=== PATIENT | male | born 1985 | race African-American/Black ===

== ENCOUNTER 2020-01-03 14:51 | Emergency (ER) | payer OTHER, SELFPAY ==
[~2020-01-03] VITALS: Ht 175.3 cm; Wt 163.8 kg
[2020-01-03] MEDS ORDERED: ceFAZolin SOD 1 GM in D5W MINI-BAG PLUS 50 ML IV ONE (15:00)
[2020-01-03] MEDS ORDERED: NS 1,000 ML IV ONE ×2 (15:00→17:45)
[2020-01-03] MEDS: fentaNYL 100 MCG/2 ML INJECTION (J3010) IV PRN ×3 (15:32→18:13)
[2020-01-03 15:47] LABS: BASO % 0.5 % (0.0-1.0); EOS % 0.7 % (0.0-3.0); HEMOGLOBIN 13.6 g/dl (13.5-17.5); LYMPH # 1.6 10^3/uL (1.5-5.0); LYMPH % 27.5 % (24.0-44.0); MEAN CORPUSCULAR HEMOGLOBIN 28.8 pg (27.0-33.0); MEAN CORPUSCULAR HGB CONC 32.4 g/dl (32.0-36.5); MONO # 0.5 10^3/uL (0.0-0.8); MONO % 7.6 % (0.0-5.0); NEUTROPHILS # 3.8 10^3/uL (1.5-8.5); NEUTROPHILS % 63.2 % (36.0-66.0); PLATELET COUNT, AUTOMATED 235 10^3/uL (150-450); RED BLOOD COUNT 4.72 10^6/uL (4.30-6.10)
[2020-01-03] MEDS ORDERED: fentaNYL 100 MCG/2 ML INJECTION (J3010) IV ONE ×3 (16:00→16:45)
[2020-01-03] MEDS ORDERED: ISOVUE-370 76% 100ML VIAL As Ordered ONE (16:11)
--- NOTE | 2020-01-03 16:16 | REPVR ---
PROCEDURE INFORMATION: Exam: XR Right Tibia and Fibula Exam date and time: 01/03/2020 3:51 PM Age: 34 years old Clinical indication: Injury or trauma; Fall; Fracture, traumatic; Open fracture, severity classification not provided; Fibula and tibia; Right TECHNIQUE: Imaging protocol: XR Right tibia and fibula. Views: 2 views. COMPARISON: No relevant prior studies available. FINDINGS: Bones/joints: Limited, including only the proximal to mid tibia and fibula. There is no fracture. Soft tissues: There is gas within the soft tissue in the mid lower leg at the inferior edge of this study. IMPRESSION: No fracture of the proximal to mid tibia or fibula. See ankle x-ray report for distal tibia and fibula. Electronically signed by: Patel Up On 01/03/2020 16:15:44 PM
--- NOTE | 2020-01-03 16:16 | REPVR ---
PROCEDURE INFORMATION: Exam: XR Chest, 1 View Exam date and time: 01/03/2020 3:51 PM Age: 34 years old Clinical indication: Injury or trauma; Fall; Sprain or strain TECHNIQUE: Imaging protocol: XR of the chest Views: 1 view. COMPARISON: No relevant prior studies available. FINDINGS: Lungs: Unremarkable. No consolidation. Pleural space: Unremarkable. No pleural effusion. No pneumothorax. Heart/Mediastinum: Unremarkable. No cardiomegaly. Bones/joints: Unremarkable. IMPRESSION: No acute findings. Electronically signed by: Patel Up On 01/03/2020 16:16:11 PM
--- NOTE | 2020-01-03 16:18 | REPVR ---
PROCEDURE INFORMATION: Exam: XR Right Ankle Exam date and time: 01/03/2020 3:51 PM Age: 34 years old Clinical indication: Injury or trauma; Fall; Fracture, traumatic; Open fracture, severity classification not provided; Fibula and tibia; Right TECHNIQUE: Imaging protocol: XR Right ankle. Views: 1 or 2 views. COMPARISON: No relevant prior studies available. FINDINGS: Bones/joints: There are transverse fractures of the distal tibia and fibula with comminution. There is 3 cm lateral displacement and 2 cm of anterior displacement at the fracture sites. Small foci of gas in the soft tissue are consistent with an open fracture. The ankle joint is intact. The fractures are approximately 10 cm proximal to the joint. Soft tissues: Normal. IMPRESSION: Comminuted and markedly displaced transverse fractures of the distal tibia and fibula. Electronically signed by: Patel Up On 01/03/2020 16:17:52 PM
--- NOTE | 2020-01-03 17:18 | REPVR ---
PROCEDURE INFORMATION: Exam: CT Cervical Spine Without Contrast Exam date and time: 01/03/2020 3:03 PM Age: 34 years old Clinical indication: Injury or trauma; Fall; Blunt trauma; Additional info: Fall from 2nd story TECHNIQUE: Imaging protocol: Computed tomography images of the cervical spine without contrast. Radiation optimization: All CT scans at this facility use at least one of these dose optimization techniques: automated exposure control; mA and/or kV adjustment per patient size (includes targeted exams where dose is matched to clinical indication); or iterative reconstruction. COMPARISON: No relevant prior studies available. FINDINGS: Vertebrae: There is no evidence of fracture. Vertebral alignment is normal. Discs/Spinal canal/Neural foramina: There is no central or foraminal stenosis. There is no significant disc disease. Soft tissues: Unremarkable. Lungs: Lung apices are normal. IMPRESSION: No fracture of the cervical spine. Electronically signed by: Patel Up On 01/03/2020 17:17:42 PM
--- NOTE | 2020-01-03 17:20 | REPVR ---
PROCEDURE INFORMATION: Exam: CT Head Without Contrast Exam date and time: 01/03/2020 3:03 PM Age: 34 years old Clinical indication: Injury or trauma; Fall; Blunt trauma (contusions or hematomas); Additional info: Fall from 2nd story TECHNIQUE: Imaging protocol: Computed tomography of the head without contrast. Radiation optimization: All CT scans at this facility use at least one of these dose optimization techniques: automated exposure control; mA and/or kV adjustment per patient size (includes targeted exams where dose is matched to clinical indication); or iterative reconstruction. COMPARISON: No relevant prior studies available. FINDINGS: Brain: There is no evidence of infarct, zapata-white matter differentiation is preserved. There is no hemorrhage or extra-axial collection. There is no mass. Cerebral ventricles: There is no hydrocephalus. Bones/joints: Unremarkable. No acute fracture. Paranasal sinuses: Visualized sinuses are unremarkable. No fluid levels. Mastoid air cells: Visualized mastoid air cells are well aerated. Soft tissues: Unremarkable. IMPRESSION: No intracranial injury or lesion. Electronically signed by: Patel Up On 01/03/2020 17:19:49 PM
--- NOTE | 2020-01-03 17:24 | REPVR ---
PROCEDURE INFORMATION: Exam: CT Chest Without Contrast Exam date and time: 01/03/2020 4:38 PM Age: 34 years old Clinical indication: Injury or trauma; Fall; Blunt trauma (contusions or hematomas); Additional info: Fall from 2nd story TECHNIQUE: Imaging protocol: Computed tomography of the chest without contrast. Radiation optimization: All CT scans at this facility use at least one of these dose optimization techniques: automated exposure control; mA and/or kV adjustment per patient size (includes targeted exams where dose is matched to clinical indication); or iterative reconstruction. COMPARISON: CR PORTABLE CHEST X-RAY 01/03/2020 3:30 PM FINDINGS: Lungs: There is no lung consolidation or contusion. Pleural space: There is no pleural effusion or hemothorax. There is no pneumothorax. Heart: Unremarkable. No cardiomegaly. No pericardial effusion. Mediastinal space: There is no mediastinal hematoma. There is no pneumomediastinum. Aorta: Unremarkable. No aortic aneurysm. Lymph nodes: Unremarkable. No enlarged lymph nodes. Bones/joints: Unremarkable. No acute fracture. Soft tissues: Unremarkable. IMPRESSION: No thoracic injury. Electronically signed by: Patle Up On 01/03/2020 17:24:14 PM
--- NOTE | 2020-01-03 17:30 | REPVR ---
PROCEDURE INFORMATION: Exam: CT Abdomen And Pelvis Without Contrast Exam date and time: 01/03/2020 4:38 PM Age: 34 years old Clinical indication: Injury or trauma; Fall; Blunt; Generalized; Additional info: Fall from 2nd story TECHNIQUE: Imaging protocol: Computed tomography of the abdomen and pelvis without contrast. Radiation optimization: All CT scans at this facility use at least one of these dose optimization techniques: automated exposure control; mA and/or kV adjustment per patient size (includes targeted exams where dose is matched to clinical indication); or iterative reconstruction. COMPARISON: No relevant prior studies available. FINDINGS: Liver: The liver is normal. Gallbladder and bile ducts: The gallbladder is normal.No calcified calculi. Normal bile ducts. Pancreas: The pancreas is normal. Spleen: The spleen is normal. Adrenals: The adrenals are normal. Kidneys and ureters: The kidneys are normal.No hydronephrosis. Stomach and bowel: Unremarkable. No obstruction. No mucosal thickening. Appendix: The appendix is well visualized and is normal. Intraperitoneal space: There is no free fluid or fluid collection. There is no free air. There is no evidence of hemoperitoneum. Retroperitoneal space: There is no evidence of retroperitoneal hemorrhage. Vasculature: Unremarkable. No abdominal aortic aneurysm. Lymph nodes: Unremarkable. No enlarged lymph nodes. Urinary bladder: The bladder is normal with no evidence of calculi. Reproductive: Unremarkable as visualized. Bones/joints: Unremarkable. No acute fracture. Soft tissues: Unremarkable. IMPRESSION: No abdominal or pelvic injury. Electronically signed by: Patel Up On 01/03/2020 17:30:10 PM
[2020-01-03 17:46] LABS: HEMATOCRIT 46.3 % (42.0-52.0); MEAN CORPUSCULAR HGB CONC 32.4 g/dl (32.0-36.5); MEAN CORPUSCULAR VOLUME 89.6 fl (80.0-96.0); PLATELET COUNT, AUTOMATED 249 10^3/uL (150-450); RED BLOOD COUNT 5.17 10^6/uL (4.30-6.10); WHITE BLOOD COUNT 8.9 10^3/uL (4.0-10.0)
[2020-01-03 17:59] LABS: INR 0.91; PROTHROMBIN TIME 12.5 SECONDS (12.5-14.3)
[2020-01-03 18:10] LABS: ALBUMIN 4.1 GM/DL (3.2-5.2); ALT/SGPT 56 U/L (12-78); AMYLASE 89 U/L (25-115); BILIRUBIN,DIRECT < 0.1 MG/DL (0.0-0.2); BILIRUBIN,TOTAL 0.4 MG/DL (0.2-1.0); CK-MB VALUE MASS 3.2 NG/ML (<3.6); CPK CREATINE PHOSPHOKINASE 551 U/L (39-308); ETHYL ALCOHOL (ETHANOL) < 0.003 % (0.000-0.010); LIPASE 293 U/L (73-393); MB/CK RELATIVE INDEX 0.58 (< OR =4); TOTAL PROTEIN 7.9 GM/DL (6.4-8.2); TROPONIN I < 0.02 NG/ML (< 0.10)
[2020-01-03 19:25] VITALS: BP 146/98
== END 2020-01-03 19:18 | disposition short-term general hospital (02) ==
LOC: EDBD 14:51 → M ED 14:51
DX: S82.221B Displaced transverse fracture of shaft of right tibia, initial encounter for open fracture type I or II (principal); S82.421B Displaced transverse fracture of shaft of right fibula, initial encounter for open fracture type I or II; W13.9XXA Fall from, out of or through building, not otherwise specified, initial encounter; Y92.89 Other specified places as the place of occurrence of the external cause; Y93.02 Activity, running; Y99.8 Other external cause status
CPT/HCPCS: 29515; 36415; 70450; 71045; 71250; 72125; 73590; 73600; 74176; 80076; 82150; 82550; 82553; 83605; 83690; 85025; 85027; 85610; 85730; 86850; 86900; 86901; 93041; 94760; 96361; 96365; 96375; 96376; 99285; G0480; J0690; J3010

== ENCOUNTER → 2020-05-18 | Outpatient (REF) | payer OTHER ==
[2020-05-18 16:57] LABS: CHLAMYDIA DNA AMPLIFICATION NEGATIVE (NEGATIVE); GC DNA AMPLIFICATION NEGATIVE (NEGATIVE)
== END ==
LOC: M LAB REF 13:34
PROVIDERS: ATTEND Surgery
DX: A56.8 Sexually transmitted chlamydial infection of other sites (principal)